=== PATIENT | female | born 1975 | race Caucasian/White ===

== ENCOUNTER 2020-10-26 19:28 | Emergency (ER) | payer MEDICAID ==
[~2020-10-26] VITALS: Ht 167.6 cm; Wt 70.9 kg
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
--- NOTE | 2020-10-26 20:13 | NUR ---
xray at bedside
[2020-10-26] MEDS ORDERED: HYDROcodone/APAP 5/325 TABLET ONE (21:16)
[2020-10-26] MEDS ORDERED: HYDROcodone/APAP 5/325 TABLET PO ONE (21:30)
[2020-10-26] MEDS ORDERED: PROPOFOL 10 MG/ML, 20ML IVPush ONE (21:30)
--- NOTE | 2020-10-26 21:54 | NUR ---
REPORT FROM MARCI QUIÑONEZ, PT MOVED TO T2 FOR REDUCTION.
[2020-10-26] MEDS ORDERED: PROPOFOL 10 MG/ML, 20ML ONE ×2 (22:16→22:21)
--- NOTE | 2020-10-26 22:55 | NUR ---
POST REDUCTION, PT AWAKE AND TALKING, VSS.
--- NOTE | 2020-10-26 23:09 | NUR ---
REPORT TO NANCY QUIÑONEZ.
--- NOTE | 2020-10-26 23:21 | NUR ---
REPORT RECEIVED, POC DISCUSSED, CARE ASSUMED. PT TO BE DC'D HOME.
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
[2020-10-27] VITALS: BP 116/79
== END 2020-10-26 23:36 | disposition home or self-care (01) ==
LOC: ED 23:30
DX: S43.084A Other dislocation of right shoulder joint, initial encounter (principal); F17.210 Nicotine dependence, cigarettes, uncomplicated; V18.4XXA Pedal cycle driver injured in noncollision transport accident in traffic accident, initial encounter; Y93.89 Activity, other specified; Y92.410 Unspecified street and highway as the place of occurrence of the external cause; Y99.8 Other external cause status
CPT/HCPCS: 23650; 99152; 99285